=== PATIENT | male | born 1990 | race Caucasian/White ===

== ENCOUNTER → 2017-04-29 | Outpatient (CLI) | payer OTHER ==
--- NOTE | 2017-04-30 14:14 | EKG ---
Date Performed: 04/29/2017 Time Performed: 14:36:30 PTAGE: 26 years EKG: Sinus/ectopic atrial rhythm ABNORMAL RHYTHM ECG NO PREVIOUS TRACING DOCTOR: Kimani Horner Interpretating Date/Time 04/30/2017 14:12:49
== END ==
LOC: HCAV 14:24
DX: F33.1 Major depressive disorder, recurrent, moderate (principal); F41.1 Generalized anxiety disorder; F43.12 Post-traumatic stress disorder, chronic; F90.9 Attention-deficit hyperactivity disorder, unspecified type
CPT/HCPCS: 93005